=== PATIENT | female | born 1990 | race Caucasian/White ===

== ENCOUNTER 2018-09-22 12:19 | Emergency (ER) | payer MEDICAID ==
[~2018-09-22] VITALS: Ht 170.2 cm; Wt 72.7 kg
[2018-09-22 12:23] VITALS: Ht 170.2 cm; Wt 72.7 kg
[2018-09-22 14:00] LABS: APPEARANCE HAZY (CLEAR); BACTERIA MANY /hpf (NONE SEEN); COLOR ORANGE (YELLOW); EPITHELIAL CELLS 0-5 /hpf (0-5); MUCUS <1+ /lpf (NONE SEEN); RED CELLS - URINE RARE /hpf (0-5); SPECIFIC GRAVITY 1.005 (1.005-1.020); WHITE CELLS - URINE 0-5 /hpf (0-5)
[2018-09-22] MEDS ORDERED: DIFLUCAN150 MG PO (14:15)
[2018-09-22 14:32] VITALS: BP 124/60
[2018-09-24 16:10] LABS: CHLAMYDIA TRACHOMATIS, NAA Negative (Negative)
== END 2018-09-22 14:33 | disposition home or self-care (01) ==
LOC: D.ER 12:19
PROVIDERS: Emergency Medicine
DX: B37.3 Candidiasis of vulva and vagina (principal); Z20.2 Contact with and (suspected) exposure to infections with a predominantly sexual mode of transmission

== ENCOUNTER 2018-10-16 08:57 | Emergency (ER) | payer MEDICAID ==
[~2018-10-16 08:57] MED LIST: DIFLUCAN150 MG PO
[2018-10-16 09:00] VITALS: BMI 25.9
[2018-10-16 10:24] VITALS: BP 122/78
== END 2018-10-16 10:09 | disposition home or self-care (01) ==
LOC: D.ER 08:57
DX: N89.8 Other specified noninflammatory disorders of vagina (principal)

== ENCOUNTER 2018-11-11 11:15 | Emergency (ER) | payer MEDICAID ==
[~2018-11-11] VITALS: Ht 170.2 cm; Wt 74.1 kg
[2018-11-11 11:18] VITALS: Ht 170.2 cm; Wt 74.1 kg
[2018-11-11] MEDS ORDERED: VOLTAREN75 MG PO (11:35)
[2018-11-11] MEDS ORDERED: CLEOCIN HCL300 MG PO (11:35)
[2018-11-11 12:06] VITALS: BP 112/68
== END 2018-11-11 12:05 | disposition home or self-care (01) ==
LOC: D.ER 11:15
DX: K08.89 Other specified disorders of teeth and supporting structures (principal); K04.7 Periapical abscess without sinus

== ENCOUNTER 2018-12-04 12:06 | Emergency (ER) | payer MEDICAID ==
[~2018-12-04] VITALS: Ht 170.2 cm; Wt 77.3 kg
[~2018-12-04 12:06] MED LIST changes: +CLEOCIN HCL300 MG PO; +VOLTAREN75 MG PO
[2018-12-04 12:09] VITALS: Ht 170.2 cm; Wt 77.3 kg
[2018-12-04 12:50] LABS: APPEARANCE CLEAR (CLEAR); BACTERIA MODERATE /hpf (NONE SEEN); BILIRUBIN NEGATIVE (NEGATIVE); COLOR YELLOW (YELLOW); EPITHELIAL CELLS 0-5 /hpf (0-5); GLUCOSE NEGATIVE (NEGATIVE); KETONE NEGATIVE (NEGATIVE); NITRITE NEGATIVE (NEGATIVE); PROTEIN NEGATIVE (NEGATIVE); WHITE CELLS - URINE OCC /hpf (0-5)
[2018-12-04] MEDS ORDERED: MACROBID100 MG PO (12:58)
[2018-12-04] MEDS ORDERED: PHENAZOPYRIDIN100 MG PO (12:58)
[2018-12-04 13:08] VITALS: BP 110/68
== END 2018-12-04 13:10 | disposition home or self-care (01) ==
LOC: D.ER 12:06
PROVIDERS: Family Medicine
DX: N39.0 Urinary tract infection, site not specified (principal)

== ENCOUNTER 2019-02-11 17:43 | Emergency (ER) | payer MEDICAID ==
[~2019-02-11] VITALS: Ht 170.2 cm; Wt 75.0 kg
[~2019-02-11 17:43] MED LIST changes: +MACROBID100 MG PO; +PHENAZOPYRIDIN100 MG PO
[2019-02-11 18:04] VITALS: Ht 170.2 cm; Wt 75.0 kg
[2019-02-11] MEDS ORDERED: AZO STANDARD95 MG PO (18:06)
[2019-02-11] MEDS ORDERED: AMOXICILLIN500 M1 PO (18:06)
[2019-02-11] MEDS ORDERED: LEVOFLOXACIN500 MG PO (18:06)
[2019-02-11 18:50] LABS: BASOPHILS 0.4 % (0-2); EOSINOPHILS 2.7 % (0-7); HEMATOCRIT 34.5 % (36.0-48.0); IMMATURE GRANULOCYTES 0.1 % (0-5); LYMPHOCYTES 22.8 % (15-50); MCH 31.7 pg (26.0-34.0); MCHC 31.9 g/dL (31.0-37.0); MCV 99.4 fL (80.0-100.0); MEAN PLATELET VOLUME 9.8 fL (7.4-10.4); MONOCYTES 5.6 % (2-11); NEUTROPHILS 68.4 % (40-80); PLATELET COUNT 216 10x3/uL (130-400); RBC 3.47 10x6/uL (4.00-5.40); RDW 12.4 % (11.5-14.5); WBC 7.4 10x3/uL (4.8-10.8)
[2019-02-11 18:59] LABS: APPEARANCE CLEAR (CLEAR)
[2019-02-11 19:00] LABS: COLOR DK YELLOW (YELLOW)
[2019-02-11 19:02] LABS: BACTERIA FEW /hpf (NEGATIVE); RED CELLS - URINE OCC /hpf (0-5); WHITE CELLS - URINE OCC /hpf (NEGATIVE)
[2019-02-11 19:06] LABS: ALBUMIN 4.2 g/dL (3.4-5.0); ALKALINE PHOSPHATASE 47 U/L (46-116); ALT (SGPT) 11 U/L (10-68); BILIRUBIN - TOTAL 0.35 mg/dL (0.2-1.3); CALC OSMOLALITY 279 mosm/kg (275-300); CALCIUM 8.8 mg/dL (8.5-10.1); CARBON DIOXIDE 28.5 mmol/L (21.0-32.0); CHLORIDE - SERUM 103 mmol/L (98-107); CREATININE - SERUM 0.8 mg/dL (0.6-1.3); GLUCOSE 91 mg/dL (74-106); PROTEIN - SERUM 7.8 g/dL (6.4-8.2); SODIUM 139 mmol/L (136-145); UREA NITROGEN 18 mg/dL (7-18); eGFR NON AFRICAN AMERICAN 90 mL/min (90-120)
[2019-02-11 20:16] VITALS: BP 122/73
== END 2019-02-11 20:17 | disposition home or self-care (01) ==
LOC: D.ER 17:43
PROVIDERS: Emergency Medicine
DX: N39.0 Urinary tract infection, site not specified (principal); F17.210 Nicotine dependence, cigarettes, uncomplicated

== ENCOUNTER 2019-02-14 08:08 | Emergency (ER) | payer MEDICAID ==
[~2019-02-14] VITALS: Ht 170.2 cm; Wt 75.0 kg
[~2019-02-14 08:08] MED LIST changes: +AMOXICILLIN500 M1 PO; +AZO STANDARD95 MG PO; +LEVOFLOXACIN500 MG PO
[2019-02-14 08:20] VITALS: Ht 170.2 cm; Wt 75.0 kg
[2019-02-14 08:44] LABS: APPEARANCE CLEAR (CLEAR); BILIRUBIN NEGATIVE (NEGATIVE); COLOR YELLOW (YELLOW); GLUCOSE NEGATIVE (NEGATIVE); KETONE NEGATIVE (NEGATIVE); NITRITE NEGATIVE (NEGATIVE); PROTEIN NEGATIVE (NEGATIVE); UROBILINOGEN NORMAL (NORMAL)
[2019-02-14 08:45] LABS: HCG URINE NEGATIVE (NEGATIVE)
[2019-02-14 09:06] LABS: BASOPHILS 0.7 % (0-2); EOSINOPHILS 5.6 % (0-7); HEMATOCRIT 36.8 % (36.0-48.0); HEMOGLOBIN 11.7 g/dL (12-16); IMMATURE GRANULOCYTES 0.2 % (0-5); MCH 31.8 pg (26.0-34.0); MCHC 31.8 g/dL (31.0-37.0); MEAN PLATELET VOLUME 9.6 fL (7.4-10.4); MONOCYTES 5.8 % (2-11); NEUTROPHILS 61.7 % (40-80); PLATELET COUNT 203 10x3/uL (130-400); RBC 3.68 10x6/uL (4.00-5.40); RDW 12.7 % (11.5-14.5); WBC 5.7 10x3/uL (4.8-10.8)
[2019-02-14 09:19] LABS: ALBUMIN 4.3 g/dL (3.4-5.0); ALKALINE PHOSPHATASE 47 U/L (46-116); ALT (SGPT) 11 U/L (10-68); AMYLASE - SERUM 49 U/L (25-115); BILIRUBIN - TOTAL 0.51 mg/dL (0.2-1.3); CALC OSMOLALITY 280 mosm/kg (275-300); CALCIUM 8.8 mg/dL (8.5-10.1); CARBON DIOXIDE 28.2 mmol/L (21.0-32.0); CHLORIDE - SERUM 105 mmol/L (98-107); CREATININE - SERUM 0.8 mg/dL (0.6-1.3); GLUCOSE 93 mg/dL (74-106); LIPASE 111 U/L (73-393); POTASSIUM - SERUM 4.1 mmol/L (3.5-5.1); PROTEIN - SERUM 7.8 g/dL (6.4-8.2); SODIUM 140 mmol/L (136-145); UREA NITROGEN 17 mg/dL (7-18); eGFR NON AFRICAN AMERICAN 90 mL/min (90-120)
[2019-02-14] MEDS ORDERED: MIRALAX17 GM PO (11:10)
[2019-02-14 11:35] VITALS: BP 106/68
== END 2019-02-14 11:35 | disposition home or self-care (01) ==
LOC: D.ER 08:08
PROVIDERS: Family Medicine
DX: R10.9 Unspecified abdominal pain (principal); K59.00 Constipation, unspecified

== ENCOUNTER 2019-06-03 11:09 | Emergency (ER) | payer OTHER ==
[~2019-06-03] VITALS: Ht 170.2 cm; Wt 71.4 kg
[~2019-06-03 11:09] MED LIST changes: +MIRALAX17 GM PO
[2019-06-03 11:20] VITALS: Ht 170.2 cm; Wt 71.4 kg
[2019-06-03 11:40] LABS: BASOPHILS 0.4 % (0-2); EOSINOPHILS 2.4 % (0-7); HEMATOCRIT 43.5 % (36.0-48.0); HEMOGLOBIN 14.4 g/dL (12-16); IMMATURE GRANULOCYTES 0.1 % (0-5); LYMPHOCYTES 25.7 % (15-50); MCH 31.6 pg (26.0-34.0); MCHC 33.1 g/dL (31.0-37.0); MCV 95.4 fL (80.0-100.0); MEAN PLATELET VOLUME 10.4 fL (7.4-10.4); MONOCYTES 3.8 % (2-11); NEUTROPHILS 67.6 % (40-80); PLATELET COUNT 232 10x3/uL (130-400); RBC 4.56 10x6/uL (4.00-5.40); RDW 13.9 % (11.5-14.5); WBC 7.6 10x3/uL (4.8-10.8)
[2019-06-03 11:42] LABS: APPEARANCE CLEAR (CLEAR); BILIRUBIN NEGATIVE (NEGATIVE); COLOR YELLOW (YELLOW); GLUCOSE NEGATIVE (NEGATIVE); KETONE NEGATIVE (NEGATIVE); NITRITE NEGATIVE (NEGATIVE); PROTEIN NEGATIVE (NEGATIVE); UROBILINOGEN NORMAL (NORMAL)
[2019-06-03 11:44] LABS: HCG URINE NEGATIVE (NEGATIVE)
[2019-06-03 11:46] LABS: CALC OSMOLALITY 280 mosm/kg (275-300); CALCIUM 9.5 mg/dL (8.5-10.1); CHLORIDE - SERUM 103 mmol/L (98-107); CREATININE - SERUM 0.9 mg/dL (0.6-1.3); GLUCOSE 86 mg/dL (74-106); POTASSIUM - SERUM 4.1 mmol/L (3.5-5.1); SODIUM 141 mmol/L (136-145); UREA NITROGEN 14 mg/dL (7-18); eGFR NON AFRICAN AMERICAN 78 mL/min (90-120)
[2019-06-03 11:53] LABS: ALBUMIN 4.6 g/dL (3.4-5.0); ALKALINE PHOSPHATASE 58 U/L (46-116); ALT (SGPT) 15 U/L (10-68); AMYLASE - SERUM 59 U/L (25-115); BILIRUBIN - TOTAL 0.54 mg/dL (0.2-1.3); LIPASE 131 U/L (73-393); PROTEIN - SERUM 8.5 g/dL (6.4-8.2)
[2019-06-03] MEDS ORDERED: BENTYL 20 MG TA20 MG PO (12:52)
[2019-06-03] MEDS ORDERED: CYCLOBENZAPRINE10 MG PO (12:52)
[2019-06-03 14:16] VITALS: BP 128/81
== END 2019-06-03 14:17 | disposition home or self-care (01) ==
LOC: D.ER 11:09
PROVIDERS: Emergency Medicine
DX: R10.9 Unspecified abdominal pain (principal); R10.2 Pelvic and perineal pain; G89.29 Other chronic pain

== ENCOUNTER 2019-06-10 10:20 | Emergency (ER) | payer OTHER ==
[~2019-06-10] VITALS: Ht 170.2 cm; Wt 71.4 kg
[~2019-06-10 10:20] MED LIST changes: +BENTYL 20 MG TA20 MG PO; +CYCLOBENZAPRINE10 MG PO
[2019-06-10 10:29] VITALS: Ht 170.2 cm; Wt 71.4 kg
[2019-06-10 11:04] LABS: BASOPHILS 0.3 % (0-2); EOSINOPHILS 3.7 % (0-7); HEMATOCRIT 41.1 % (36.0-48.0); HEMOGLOBIN 13.5 g/dL (12-16); IMMATURE GRANULOCYTES 0.2 % (0-5); LYMPHOCYTES 26.8 % (15-50); MCH 31.3 pg (26.0-34.0); MCHC 32.8 g/dL (31.0-37.0); MCV 95.1 fL (80.0-100.0); MONOCYTES 6.1 % (2-11); NEUTROPHILS 62.9 % (40-80); PLATELET COUNT 197 10x3/uL (130-400); RBC 4.32 10x6/uL (4.00-5.40); RDW 13.7 % (11.5-14.5); WBC 6.2 10x3/uL (4.8-10.8)
[2019-06-10 11:09] LABS: HCG URINE NEGATIVE (NEGATIVE)
[2019-06-10 11:10] LABS: ANION GAP 8.6 mmol/L (8-16); CALCIUM 8.9 mg/dL (8.5-10.1); CARBON DIOXIDE 29.5 mmol/L (21.0-32.0); POTASSIUM - SERUM 4.1 mmol/L (3.5-5.1)
[2019-06-10 11:12] LABS: APPEARANCE CLEAR (CLEAR); BILIRUBIN NEGATIVE (NEGATIVE); COLOR YELLOW (YELLOW); GLUCOSE NEGATIVE (NEGATIVE); KETONE NEGATIVE (NEGATIVE); NITRITE NEGATIVE (NEGATIVE); PROTEIN NEGATIVE (NEGATIVE); SPECIFIC GRAVITY 1.015 (1.005-1.020); UROBILINOGEN NORMAL (NORMAL)
[2019-06-10 11:18] LABS: ALBUMIN 4.1 g/dL (3.4-5.0); BILIRUBIN - TOTAL 0.31 mg/dL (0.2-1.3); PROTEIN - SERUM 7.9 g/dL (6.4-8.2)
[2019-06-10] MEDS ORDERED: ULTRAM50 MG PO (12:31)
[2019-06-10 13:44] VITALS: BP 142/73
== END 2019-06-10 13:45 | disposition home or self-care (01) ==
LOC: D.ER 10:20
PROVIDERS: Family Medicine
DX: R10.32 Left lower quadrant pain (principal); G89.29 Other chronic pain